=== PATIENT | male | born 1985 | race Caucasian/White ===

== ENCOUNTER 2017-09-25 13:54 | Emergency (ER) | payer OTHER ==
[~2017-09-25] VITALS: Ht 185.4 cm; Wt 89.8 kg
[~2017-09-25 13:54] MED LIST: CYCL10 PO; Indomethacin50 MG PO; METPRE4DP PO; Naprosyn500 MG PO; Norco 5-325 Ta1 EACH PO
[2017-09-25] MEDS ORDERED: IBUP800 PO ×2 (14:28→15:58)
[2017-09-25] MEDS ORDERED: Voltaren100 GM TOP (15:58)
[2017-09-25] MEDS ORDERED: CYCL10 PO (15:58)
== END 2017-09-25 16:18 | disposition home or self-care (01) ==
LOC: ER 13:54
DX: M54.5 Low back pain (principal); Z88.1 Allergy status to other antibiotic agents; Z86.19 Personal history of other infectious and parasitic diseases; Z79.891 Long term (current) use of opiate analgesic; W01.0XXA Fall on same level from slipping, tripping and stumbling without subsequent striking against object, initial encounter
CPT/HCPCS: 72100; 96372; 99284; J1885